=== PATIENT | female | born 1990 | race African-American/Black ===

== ENCOUNTER 2017-12-04 23:59 | Emergency (ER) | payer MEDICAID ==
[~2017-12-04] VITALS: Ht 165.1 cm; Wt 72.6 kg
[2017-12-05 00:05] VITALS: BP 124/82
== END 2017-12-05 03:00 | disposition left against medical advice (07) ==
LOC: ER 23:59
DX: M79.89 Other specified soft tissue disorders (principal); Z53.21 Procedure and treatment not carried out due to patient leaving prior to being seen by health care provider

== ENCOUNTER 2018-03-25 00:01 | Emergency (ER) | payer MEDICAID ==
[~2018-03-25] VITALS: Ht 165.1 cm; Wt 60.0 kg
[2018-03-25 00:28] VITALS: BP 128/84
== END 2018-03-25 04:39 | disposition left against medical advice (07) ==
LOC: ER 00:01
DX: M79.604 Pain in right leg (principal); M79.605 Pain in left leg; Z53.21 Procedure and treatment not carried out due to patient leaving prior to being seen by health care provider

== ENCOUNTER 2018-03-25 08:34 | Emergency (ER) | payer MEDICAID | END 2018-03-25 10:26 | disposition left against medical advice (07) | LOC: ER 08:34 | DX: M79.10 Myalgia, unspecified site (principal); Z53.21 Procedure and treatment not carried out due to patient leaving prior to being seen by health care provider ==